=== PATIENT | female | born 1945 | race Caucasian/White ===

== ENCOUNTER 2021-11-07 10:09 | Outpatient (CLI) | payer MEDICARE, BC | END 2021-11-07 10:10 | disposition home or self-care (01) | LOC: CSHMAMMO 10:09 | PROVIDERS: ATTEND Obstetrics & Gynecology | DX: Z12.31 Encounter for screening mammogram for malignant neoplasm of breast (principal) | CPT/HCPCS: 77063; 77067 ==

== ENCOUNTER 2022-12-14 11:20 | Outpatient (CLI) | payer MEDICARE, BC | END 2022-12-14 11:21 | disposition home or self-care (01) | LOC: CSHMAMMO 11:20 | PROVIDERS: ATTEND Obstetrics & Gynecology | DX: Z12.31 Encounter for screening mammogram for malignant neoplasm of breast (principal) | CPT/HCPCS: 77063; 77067 ==

== ENCOUNTER 2023-01-28 10:34 | Outpatient (CLI) | payer MEDICARE, BC | END 2023-01-28 10:35 | disposition home or self-care (01) | LOC: CSHMAMMO 10:34 | PROVIDERS: ATTEND Family Medicine | DX: Z13.820 Encounter for screening for osteoporosis (principal); Z78.0 Asymptomatic menopausal state; M85.851 Other specified disorders of bone density and structure, right thigh; M85.852 Other specified disorders of bone density and structure, left thigh | CPT/HCPCS: 77080 ==